=== PATIENT | female | born 1990 | race Caucasian/White ===

== ENCOUNTER 2016-06-23 08:20 | Emergency (ER) | payer OTHER ==
[2016-06-23] MEDS ORDERED: Eye Irrigation Solution 30 ML BOTTLE ONE (08:33)
[2016-06-23] MEDS ORDERED: Fluorescein Sodium TOPICAL* 1 MG TEST ONE (08:33)
[2016-06-23] MEDS ORDERED: Tetracaine 0.5% OPTH.SOL 4 ML* 1 DROP BTL ONE (08:33)
--- NOTE | 2016-06-23 08:46 | UC ---
Eye Complaint HPI - HPI Summary HPI Summary: left eye irritated and swollen since yest. No known injury. Does not wear contacts. - History of Current Complaint Chief Complaint: UCEye Stated Complaint: LEFT EYE COMPLAINT Time Seen by Provider: 06/23/16 08:43 Hx Obtained From: Patient Hx Last Menstrual Period: 06/11/16 ?: No Onset/Duration: Sudden Onset, Lasting Days, Still Present Timing: Constant Severity Initially: Moderate Severity Currently: Moderate Pain Intensity: 4 Pain Scale Used: 0-10 Numeric Location of Injury: Conjunctiva Character: Sharp Aggravating Factor(s): Nothing Alleviating Factor(s): Nothing Associated Signs And Symptoms: Positive: Drainage (Purulent), Swelling. Negative: Fever - Risk Factors Penetrating Injury Risk Factor: Negative Acute Glaucoma Risk Factors: Negative - Allergies/Home Medications Allergies/Adverse Reactions: Allergies Allergy/AdvReac Type Severity Reaction Status Date / Time Amoxicillin Allergy Intermediate Rash Verified 06/23/16 08:28 Latex Allergy Intermediate Rash Verified 06/23/16 08:28 PMH/Surg Hx/FS Hx/Imm Hx Endocrine History Of: Denies: Diabetes, Thyroid Disease Cardiovascular History Of: Denies: Cardiac Disorders, Hypertension Respiratory History Of: Reports: Asthma - Surgical History Surgical History: None - Family History Known Family History: Positive: Diabetes Negative: Cardiac Disease, Respiratory Disease, Other - JOINT LAXITY - Social History Lives: With Family Alcohol Use: Rare Substance Use Type: None Smoking Status (MU): Never Smoked Tobacco - Immunization History Most Recent Influenza Vaccination: 5 2 Most Recent Tetanus Shot: 212LBS Review of Systems Constitutional: Negative Skin: Negative Eyes: Drainage, Eye Redness ENT: Negative Respiratory: Negative Cardiovascular: Negative Gastrointestinal: Negative Genitourinary: Negative Motor: Negative Neurovascular: Negative Musculoskeletal: Negative Neurological: Negative Psychological: Negative All Other Systems Reviewed And Are Negative: Yes Physical Exam Triage Information Reviewed: Yes Appearance: Well-Appearing, Well-Nourished, Pain Distress Vital Signs: Initial Vital Signs Temp 98.4 F 06/23/16 08:25 Pulse 94 06/23/16 08:25 Resp 16 06/23/16 08:25 BP 92/76 06/23/16 08:25 Pulse Ox 100 06/23/16 08:25 Vital Signs Reviewed: Yes Eyes: Positive: Conjunctiva Inflamed - left, Discharge ENT: Positive: Normal ENT inspection Neck: Positive: Supple Respiratory: Positive: No respiratory distress Cardiovascular: Positive: RRR, Pulses Normal, Brisk Capillary Refill Musculoskeletal: Positive: Strength Intact, ROM Intact Neurological: Positive: Alert, Muscle Tone Normal Psychological Exam: Normal Skin: Positive: Other - swelling Eye Complaint Course/Dx - Course Course Of Treatment: Procedure: tetracaine 2 gtts, fluor strip, UV blue light, + corneal abrasion at 8:00, no ulceration, no FB. +yellow exudate, upper and lower lid swelling - Differential Dx/Diagnosis Differential Diagnosis/HQI/PQRI: Conjunctivitis, Corneal Abrasion, Periorbital Cellulitis Provider Diagnoses: corneal abrasion with secondary infection Discharge - Discharge Plan Condition: Stable Disposition: HOME Prescriptions: Tobramycin 0.3% OPHTH.TOMMY* 2 drop RIGHT EYE Q4H #1 btl Patient Education Materials: Corneal Abrasion (ED) Referrals: Analia Beasley MD [Primary Care Provider] -
[2016-06-23 09:09] VITALS: BP 97/75
== END 2016-06-23 09:14 | disposition home or self-care (01) ==
LOC: UCCORT 08:20
DX: S05.02XA Injury of conjunctiva and corneal abrasion without foreign body, left eye, initial encounter (principal); H44.002 Unspecified purulent endophthalmitis, left eye; X58.XXXA Exposure to other specified factors, initial encounter; Y92.9 Unspecified place or not applicable; Z88.1 Allergy status to other antibiotic agents
CPT/HCPCS: 99212; A9270-GY; G0463

== ENCOUNTER 2017-04-17 14:33 | Emergency (ER) | payer OTHER ==
[2017-04-17 15:49] VITALS: BP 119/74
--- NOTE | 2017-04-19 19:33 | UC ---
Throat Pain/Nasal Donald HPI - HPI Summary HPI Summary: 27 year old female presents with sore throat and fever. - History of Current Complaint Chief Complaint: UCGeneralIllness Stated Complaint: ST, FEVER 103 Time Seen by Provider: 04/17/17 15:53 Hx Obtained From: Patient Hx Last Menstrual Period: 03/25/17 Onset/Duration: Sudden Onset Severity: Moderate Pain Intensity: 5 Pain Scale Used: 0-10 Numeric Cough: None Associated Signs & Symptoms: Positive: Dysphagia - Allergies/Home Medications Allergies/Adverse Reactions: Allergies Allergy/AdvReac Type Severity Reaction Status Date / Time Amoxicillin Allergy Intermediate Rash Verified 04/17/17 15:49 Latex Allergy Intermediate Rash Verified 04/17/17 15:49 PMH/Surg Hx/FS Hx/Imm Hx Previously Healthy: Yes - Surgical History Surgical History: None - Family History Known Family History: Positive: None, Diabetes Negative: Cardiac Disease, Respiratory Disease, Other - JOINT LAXITY - Social History Alcohol Use: Rare Substance Use Type: None Smoking Status (MU): Never Smoked Tobacco - Immunization History Most Recent Influenza Vaccination: 5 2 Most Recent Tetanus Shot: 212LBS Review of Systems Constitutional: Negative Skin: Negative Eyes: Negative ENT: Sore Throat, Nasal Discharge, Sinus Congestion, Sinus Pain/Tenderness Respiratory: Negative Cardiovascular: Negative Gastrointestinal: Negative Genitourinary: Negative Motor: Negative Neurovascular: Negative Musculoskeletal: Negative Neurological: Negative Psychological: Negative All Other Systems Reviewed And Are Negative: Yes Physical Exam Triage Information Reviewed: Yes Vital Signs: Initial Vital Signs Temp 38.1 C 04/17/17 15:45 Pulse 132 04/17/17 15:45 Resp 17 04/17/17 15:45 BP 119/74 04/17/17 15:45 Pulse Ox 100 04/17/17 15:45 Vital Signs Reviewed: Yes Eye Exam: Normal ENT: Positive: Nasal congestion, Nasal drainage, Sinus tenderness Dental Exam: Normal Neck exam: Normal Neck: Positive: 1 Respiratory Exam: Normal Cardiovascular Exam: Normal Abdominal Exam: Normal Musculoskeletal Exam: Normal Neurological Exam: Normal Psychological Exam: Normal Skin Exam: Normal Throat Pain/Nasal Course/Dx - Differential Dx/Diagnosis Provider Diagnoses: pharyngitis. post nasal drip Discharge - Discharge Plan Condition: Stable Disposition: HOME Prescriptions: Azithromyxin JUAN CARLOS (NF) [Z-Juan Carlos (Zithromax) 250 mg tabs #6] 2 tab PO .TODAY, THEN 1 DAILY #6 tab LoraTADine TAB(NF) [Claritin 10 MG TAB(NF)] 10 mg PO DAILY #30 tab Magic M W2 Sumeet/Maal/Nyst/Lido* 5 ml SWISH SPIT QID PRN #120 ml PRN Reason: Pain Methylprednisolone [Medrol Dosepak 4 MG*] 4 mg PO .SEE JUAN CARLOS INSTRUCTION #21 tab Patient Education Materials: Strep Throat (ED) Forms: *Work Release Referrals: Awa Villeda [Primary Care Provider] -
== END 2017-04-17 16:14 | disposition home or self-care (01) ==
LOC: UCCORT 14:33
DX: J02.9 Acute pharyngitis, unspecified (principal); R09.82 Postnasal drip; R50.9 Fever, unspecified; Z88.1 Allergy status to other antibiotic agents; Z91.040 Latex allergy status
CPT/HCPCS: 87651; 99212; G0463

== ENCOUNTER 2018-08-17 21:59 | Emergency (ER) | payer OTHER ==
[2018-08-17] MEDS ORDERED: Cephalexin CAP* 500 MG PO ONE ×2 (22:17→22:32)
[2018-08-17 22:23] VITALS: BP 145/68
--- NOTE | 2018-08-17 22:35 | ED ---
Skin Complaint - HPI Summary HPI Summary: The pt is a 28 y/o F presenting to the ED with a chief complaint of an insect bite. The pt reports getting bit by an insect recently on her R forearm that has become pruritic within the last half hour with associated red streaking. She denies fever. - History of Current Complaint Chief Complaint: EDRashSkinAbscess Time Seen by Provider: 08/17/18 22:27 Stated Complaint: "RT ARM RASH" Hx Obtained From: Patient Hx Last Menstrual Period: 03/25/17 Onset/Duration: Started Hours Ago, Still Present Skin Exposure Onset/Duration: Hours Ago Timing: Constant, Lasting Hours Onset Severity: Mild Current Severity: None Pain Intensity: 0 Pain Scale Used: 0-10 Numeric Skin Location: Arm - Right Character: Pruritus, Redness Aggravating Symptom(s): Touch Alleviating Symptom(s): Nothing Associated Signs & Symptoms: Rash, Red Streaks Related History: Insect Bite/Sting - Allergy/Home Medications Allergies/Adverse Reactions: Allergies Allergy/AdvReac Type Severity Reaction Status Date / Time amoxicillin Allergy Rash Verified 08/17/18 22:17 latex Allergy Rash Verified 08/17/18 22:17 PMH/Surg Hx/FS Hx/Imm Hx Previously Healthy: Yes Endocrine/Hematology History: Denies: Hx Diabetes, Hx Thyroid Disease Cardiovascular History: Denies: Hx Hypertension Respiratory History: Reports: Hx Asthma Infectious Disease History: No Infectious Disease History: Denies: Traveled Outside the [place] in Last 30 Days - Family History Known Family History: Positive: Diabetes Negative: Cardiac Disease, Respiratory Disease, Other - JOINT LAXITY - Social History Alcohol Use: None Hx Substance Use: No Substance Use Type: Reports: None Hx Tobacco Use: No Smoking Status (MU): Never Smoked Tobacco Review of Systems Negative: Fever Positive: Rash, Other - pruritis, red streaking All Other Systems Reviewed And Are Negative: Yes Physical Exam - Summary Physical Exam Summary: Appearance: Well-appearing, Well-nourished, lying in bed comfortable Skin: R forearm has irritated areas on the ulnar side of the wrist with an oval shaped area of erythema just proximal to that, measuring about 3x4cm. There is another area proximal to the previously described area that has lymphangitis streaking about [address] the arm. The areas are warm, and there is no fluctuance. Eyes: sclera anicteric, no conjunctival pallor ENT: mucous membranes moist Neck: deferred Respiratory: No signs of respiratory distress Cardiovascular: Appears well perfused, pulses are nml Abdomen: deferred Musculoskeletal: Moving all 4 extremities without obvious discomfort Neurological: Awake and alert, mentation is normal, speech is fluent and appropriate Psychiatric: affect is normal, does not appear anxious or depressed Triage Information Reviewed: Yes Vital Signs On Initial Exam: Initial Vitals Temp Pulse Resp BP Pulse Ox 98.1 F 107 16 145/68 97 08/17/18 22:15 08/17/18 22:15 08/17/18 22:15 08/17/18 22:15 08/17/18 22:15 Vital Signs Reviewed: Yes Diagnostics - Vital Signs Vital Signs Temp Pulse Resp BP Pulse Ox 08/17/18 22:15 98.1 F 107 16 145/68 97 - Laboratory Lab Statement: Any lab studies that have been ordered have been reviewed, and results considered in the medical decision making process. Course/Dx - Course Course Of Treatment: The pt is a 28 y/o F presenting to the ED with a chief complaint of an insect bite. The pt reports getting bit by an insect recently on her R forearm that has become pruritic within the last half hour with associated red streaking. She denies fever. There is red streaking with irritated areas on her R forearm. In the ED course, she was given a dose of Keflex. She will be discharged with a dx of cellulitis. - Diagnoses Provider Diagnoses: Cellulitis Discharge - Sign-Out/Discharge Documenting (check all that apply): Patient Departure Patient Received Moderate/Deep Sedation with Procedure: No - Discharge Plan Condition: Stable Disposition: HOME Prescriptions: Cephalexin CAP* [Keflex CAP*] 500 mg PO QID #28 cap Patient Education Materials: Cellulitis (ED) Referrals: Awa Villeda [Primary Care Provider] - - Billing Disposition and Condition Condition: STABLE Disposition: Home - Attestation Statements Document Initiated by Scribe: Yes Documenting Scribe: Leny Portillo Provider For Whom Josh is Documenting (Include Credential): Jesus Ambrocio MD. Scribe Attestation: Leny Regalado, betoed for Jesus Ambrocio MD. on 08/18/18 at 0549. Scribe Documentation Reviewed: Yes Provider Attestation: The documentation as recorded by the scribe, Leny Portillo accurately reflects the service I personally performed and the decisions made by me, Jesus Ambrocio MD. Status of Josh Document: Viewed
== END 2018-08-17 22:40 | disposition home or self-care (01) ==
LOC: ED 21:59
DX: S50.861A Insect bite (nonvenomous) of right forearm, initial encounter (principal); W57.XXXA Bitten or stung by nonvenomous insect and other nonvenomous arthropods, initial encounter; Y92.9 Unspecified place or not applicable; L03.113 Cellulitis of right upper limb; Z91.040 Latex allergy status
CPT/HCPCS: 99282; A9270-GY

== ENCOUNTER 2018-09-14 05:58 | Inpatient (IN) | payer OTHER ==
[2018-09-14] MEDS ORDERED: Lactated Ringers 1000 ML Bag* 1,000 ML IV ONE (06:19)
[2018-09-14] MEDS ORDERED: Buffered Lidocaine 1% SYRIN* 1 ML/SYRINGE INTRADERM ONE (06:19)
[2018-09-14] MEDS ORDERED: ceFAZolin 2 GM PREMIX in ORs 2 GM/50 ML BAG IVPB ONE (06:19)
--- NOTE | 2018-09-14 06:30 | HP ---
General Information - Reason for Visit 28yo, , IUP@39+5 in active labor - General Information Maternal Age: 28 Grav: 4 Para: 3 SAB: 0 IEA: 0 Estimated Due Date: 09/16/18 Determined By: LMP Gestational Age in Weeks/Days: 39+5 Maternal Blood Type and Rh: A Positive - Results this Serology/RPR Result: Non-Reactive Rubella Result: Immune HBsAg Result: Negative HIV Result: Negative GBS Culture Result: Positive Past Medical History Delivery History: Hx Uncomplicated Vaginal Delivery Pertinent Past Medical History: See Records - Asthma, obesity Pertinent Past Surgical History: None Pertinent Family History: See Records Family History Comment: Father: d/t natural causes (age 88) Mother: substance abuse, bipolar, ADHD Brother: d/t drug overdose - Antepartal Records Antepartal Records: Reviewed, Complicated by: - G2 bleeding PP Review of Systems Constitutional: Uncomfortable CV Complaint: No Respiratory: Shortness of Breath: No Gastrointestinal: No Nausea/Vomiting Genitourinary: Leaking Fluid, No Dysuria, Spotting - bloody show Musculoskeletal: Contractions Neurological: No Headache, No Visual Changes Movement: Normal Exam Allergies/Adverse Reactions: Allergies amoxicillin Allergy (Verified 08/30/18 03:48) Rash latex Allergy (Verified 08/30/18 03:48) Rash Temp 97.9, BP 123/83, HR 91 - Measurements Pre- Weight: 216 lb - Exam Breast: Breast Exam Deferred CVA: No CVA Tenderness Extremities: No Edema Heart: Normal Rhythm/Heart Sounds HEENT: No Significant Findings Lungs: Clear Bilaterally Rectal: Rectal Exam Deferred - Abdominal Exam Abdomen Exam: Non-Tender, Fundal Height Consistent with Dates - Ultrasound/Biophysical Profile Ultrasound Status: Not Done Targeted Exam Findings Estimated Weight: 7.5lbs Cervical Exam: 4cm Effacement: 90% Station: -1 Presenting Part: Vertex Membrane Status: SROM Amniotic Fluid Evaluation: Clear EFM Findings - External Monitor Findings Baseline Heart Rate: 130 External Monitor Findings: Accelerations Present, No Pattern of Variable or Late Decelerations, Variability Moderate, Baseline Stable External Monitor Findings Comment: No evidence of metabolic acidemia Contractions: Regular, Strong, 45-90 Seconds - q3 mins Assessment/Plan - Assessment 28yo, , IUP@39+5 SROM, active labor Per pt, had bleeding PP after delivery of second child Hx of PPD Bacteriuria on 05/31/18, PCN allergy, okay to get kefzol (confirmed with pt) Regular contractions No evidence of metabolic acidemia Anticipate progression to - Obstetrical Risk Factors Obstetrical Risk Factors: GBS Positive, Obesity - Plan Plan: Admit - Anticipate Vaginal Delivery Plan Comment: Admit for active labor Abx for GBS prophylaxis Intermittent monitoring IV pit PP, given hx of PP bleeding anticipate - Date/Time of Admission Date of Admission: 09/14/18 Time of Admission: 06:30
[2018-09-14 06:58] LABS: ABS Eosinophils 0.1 10^3/ul (0-0.6); ABS Lymphocytes 3.3 10^3/ul (1.0-4.8); ABS Monocytes 0.9 10^3/ul (0-0.8); ABS Neutrophils 7.1 10^3/ul (1.5-7.7); Eosinophil % 0.4 %; Hematocrit 34 % (35-47); Hemoglobin 11.1 g/dL (12.0-16.0); Lymphocyte % 28.9 %; Mean Corpuscular HGB Conc 32 g/dL (31-36); Mean Corpuscular Hemoglobin 26 pg (27-31); Mean Corpuscular Volume 81 fL (80-97); Mean Platelet Volume 9.4 fL (7.4-10.4); Platelet Count 204 10^3/uL (150-450); Red Blood Count 4.23 10^6 /uL (3.70-4.87); Red Cell Distribution Width 16 % (10.5-15); White Blood Count 11.5 10^3/uL (3.5-10.8)
[2018-09-14] MEDS ORDERED: Lactated Ringers 1000 ML Bag* 1,000 ML IV SCH ×2 (07:00→11:00)
--- NOTE | 2018-09-14 07:20 | PN ---
Progress Note - Progress Note Date of Service: 09/14/18 Note: S: pt tearful. uncomfortable with contractions. O: FHR: 130, by intermittent monitoring Ctx q3 minutes VE: 6/100/-1, bloody show first dose of abx for GBS prophylaxis infused A: IUP@39+5 in active labor regular contractions Making appropriate cervical change, pt intolerant of VE P: Labor support Pt may consider nitrous oxide for pain relief Anticipate progression to
[2018-09-14] MEDS ORDERED: Oxytocin in LR* 20 UNITS/1,000 ML BAG IVPB ONE (08:20)
--- NOTE | 2018-09-14 09:29 | PN ---
Progress Note - Progress Note Date of Service: 09/14/18 Note: S: Using nitrous oxide with modest relief. Coping better with deeper breaths. Reports more pressure with UCs as well as low back pain O: B/P: 123/70, P: 108, R: 20, T: 97.4 FHR: baseline 110, moderate variability, +accelerations, no decelerations UCs: q1.5-3min, moderate to firm VE: 8/100/-2, clear fluid A: IUP at 39 5/7 weeks Category I FHR, no evidence of metabolic acidemia Active labor GBS positive, has received one dose of ABX P: Encouraged position changes, upright positioning, slower breathing Reassess PRN Anticipate SVB
[2018-09-14] MEDS ORDERED: Oxytocin in LR* 20 UNITS/1,000 ML BAG IVPB SCH (10:35)
[2018-09-14] MEDS ORDERED: Witch Hazel PAD* JAR TOPICAL PRN (10:58)
[2018-09-14] MEDS ORDERED: Glycerin ADULT SUPP PR PRN (10:58)
[2018-09-14] MEDS ORDERED: Acetaminophen TAB* 325 MG PO PRN (10:58)
[2018-09-14] MEDS ORDERED: Dibucaine 1% 28.35 GM TUBE PR PRN (10:58)
--- NOTE | 2018-09-14 11:05 | PROCNOTE ---
[facility] OB: Delivery Note - Delivery A Date of : 09/14/18 Time of : 10:26 [place] Sex: Male Score 1 Minute: 9 Score 5 Minutes: 9 Gestational Age in Weeks and Days at Delivery: 39 Weeks and 5 Days Delivery Method: Spontaneous Vaginal Labor: Spontaneous Did Patient attempt ?: N/A, No Previous Amniotic Fluid: Clear Estimated Blood Loss: 350 Anesthesia/Analgesia: Nitrous-Labor Delivered By: Sue Abdi - Nursery Level of Nursery: Regular/Bedside - Perineum Perineal Injury: Perineal Laceration, 1st Degree Perineal Repair: By Delivering Practioner - Events Delivery Events of Note: Pitocin Only After Delivery, Partial Course of Antibiotics - for GBS prophylaxis - cefazolin - Additional Delivery Notes Additional Delivery Notes: Sydnee began spontaneously bearing down, cervical exam revealed anterior lip easily reduced over infant head. Pushing continued with good maternal effort to of infant head, OA to MELANY, compound posterior hand. Shoulders and body followed easily with next push, infant delivered to maternal abdomen. Spontaneous cry, vigorous, HR >110. Apgars 9 and 9. Cord clamped x 2 and cut by FOB after pulsations ceased. Intact seth placenta soon followed, brisk bleeding noted, IV pitocin initiated at 250 cc/hr. Fundus firm. Perineum inspected, 1st degree perineal laceration noted and repaired in the usual fashion. Bilateral superficial labial abrasions also noted, not repaired. At time of note and mother stable, initiated. weight pending to allow for maternal- bonding. [id number].
[2018-09-14] MEDS ORDERED: Simethicone TAB* 80 MG TAB.CHEW PO SCH (12:30)
[2018-09-14] MEDS ORDERED: ceFAZolin VIAL(*) 1 GM in NS 0.9% 50 ML* 50 ML IVPB SCH (14:00)
[2018-09-14] MEDS: Docusate CAP* 100 MG PO SCH ×2 (14:29→22:00)
[2018-09-14] MEDS: Ibuprofen TAB* 600 MG PO PRN (18:33)
[2018-09-15] MEDS: Ibuprofen TAB* 600 MG PO PRN ×2 (00:29→06:17)
[2018-09-15 06:27] LABS: ABS Eosinophils 0.1 10^3/ul (0-0.6); ABS Lymphocytes 3.5 10^3/ul (1.0-4.8); ABS Monocytes 0.9 10^3/ul (0-0.8); Eosinophil % 0.4 %; Hematocrit 31 % (35-47); Lymphocyte % 25.9 %; Mean Corpuscular HGB Conc 32 g/dL (31-36); Mean Corpuscular Hemoglobin 26 pg (27-31); Mean Corpuscular Volume 82 fL (80-97); Mean Platelet Volume 8.9 fL (7.4-10.4); Nucleated Red Blood Cells % 0.1; Platelet Count 203 10^3/uL (150-450); Red Blood Count 3.81 10^6 /uL (3.70-4.87); Red Cell Distribution Width 16 % (10.5-15); White Blood Count 13.5 10^3/uL (3.5-10.8)
[2018-09-15] MEDS ORDERED: Ferrous Gluconate TAB* 324 MG TAB PO SCH (09:00)
[2018-09-15] MEDS: Docusate CAP* 100 MG PO SCH ×2 (12:48→16:14)
[2018-09-15 19:39] VITALS: BP 120/79
== END 2018-09-15 21:14 | disposition home or self-care (01) | DRG 560 ==
LOC: MCHOBOUT 05:58 → MCHOB 06:22
PROVIDERS: ADMIT Advanced Practice Midwife; ATTEND Midwife
PROC: 10E0XZZ Delivery of Products of Conception, External Approach (ICD-10-PCS; principal; 2018-09-14)
PROC: 0HQ9XZZ Repair Perineum Skin, External Approach (ICD-10-PCS; 2018-09-14)
DX: O99.824 Streptococcus B carrier state complicating childbirth (principal); Z37.0 Single live birth; O99.214 Obesity complicating childbirth; O70.0 First degree perineal laceration during delivery; O32.6XX0 Maternal care for compound presentation, not applicable or unspecified; Z3A.39 39 weeks gestation of pregnancy
CPT/HCPCS: 36415; 85025; 86850; 86900; 86901; A9270-GY; J0690

== ENCOUNTER → 2019-03-06 09:39 | Day surgery (SDC) | payer OTHER ==
[~2019-03-06 09:39] MED LIST: Buffered Lidocaine 1% SYRIN* 1 ML/SYRINGE INTRADERM ONE; Bupivacaine 0.5%* 50 ML MDV VIAL ONE; Cisatracurium* 2 MG/ML MDV 5 ML ONE; Dexamethasone IV* 4 MG/ML 1 ML (4 MG) ONE; Famotidine IV* 10 MG/ML 2 ML (20 mg) IV ONE; Famotidine IV* 10 MG/ML 2 ML (20 mg) ONE; Glycopyrrolate IV* 0.2 MG/ML 1 ML VIAL ONE; Ketorolac INJ* 30 MG/ML 1 ML VIAL ONE; Lactated Ringers 1000 ML Bag* 1,000 ML IV SCH; Levalbuterol 0.63MG/3ML NEB* UNIT OF USE INH ONE; Levalbuterol 1.25MG/0.5ML NEB ONE; Lidocaine 2% PF * 5 ML VIAL ONE; Midazolam* 1 MG/ML 5 ML VIAL (5 MG) ONE; Naloxone* 0.4 MG/ML 1 ML VIAL IV PRN; Neostigmine Methylsulfate* 1 MG/ML 10 ML VIAL (1 mg/ml) ONE; Ondansetron INJ* 2 MG/ML VIAL IV PRN; Ondansetron INJ* 2 MG/ML VIAL ONE; Propofol* 10 MG/ML 20 ML BTL ONE; fentaNYL* 50 MCG/ML 2 ML VIAL (100 MCG VIAL) IV PRN; fentaNYL* 50 MCG/ML 2 ML VIAL (100 MCG VIAL) ONE
[2019-03-06 12:48] VITALS: BP 122/92
--- NOTE | 2019-03-06 14:00 | OP ---
DATE OF OPERATION: 03/06/19 - [facility] DATE OF : 88 SURGEON: Domenico Pack MD ANESTHESIA: General endotracheal tube. PRE-OP DIAGNOSIS: Desires permanent sterilization. POST-OP DIAGNOSIS: Desires permanent sterilization. OPERATIVE PROCEDURE: Laparoscopic tubal ligation. ESTIMATED BLOOD LOSS: Minimal. SPECIMENS: None. FINDINGS: Include normal uterus, fallopian tubes, and ovaries. DESCRIPTION OF PROCEDURE: The patient identified and procedure identified as a laparoscopic tubal interruption. The patient was taken to the operating room, prepped and draped in the usual fashion in the dorsal lithotomy position under general anesthesia. The patient was catheterized and a sponge stick was placed in the vagina. A small infraumbilical incision was made and the Veress needle was inserted through this. The abdomen was insufflated to 15 mmHg. The Veress needle was removed and the trocar was inserted. Trocar was removed from the sheath and the laparoscope was inserted and the above findings were noted. A second incision was made 2 cm above the pubic symphysis in the midline. The right fallopian tube was grasped from its mid portion, followed out to its fimbriated ends and fulgurated x3 in the isthmus, then also fulgurated at the fimbria. The same procedure was carried on the left after following it out to fimbriated ends. Good hemostasis was verified. All instruments removed from the abdomen. The abdomen was deflated of CO2. All sponge and instrument counts were correct. The skin was closed with skin glue. Sponge and sponge stick removed from the vagina and the patient returned to recovery room in stable condition. [id number]/[facility] #: [id number] [facility]
== END | disposition home or self-care (01) ==
LOC: OR 09:39
PROVIDERS: ATTEND Obstetrics & Gynecology
DX: Z30.2 Encounter for sterilization (principal); J45.909 Unspecified asthma, uncomplicated; M19.90 Unspecified osteoarthritis, unspecified site; Z88.0 Allergy status to penicillin
CPT/HCPCS: A9270-GY; J1100; J1885; J2250; J2405; J2704; J2710; J3010; J3490

== ENCOUNTER 2019-06-08 08:35 | Emergency (ER) | payer OTHER ==
[2019-06-08 08:48] VITALS: BP 102/69
[2019-06-08] MEDS ORDERED: Ondansetron ODT TAB* 4 MG PO ONE (09:06)
--- NOTE | 2019-06-08 09:10 | UC ---
FLU HPI - HPI Summary HPI Summary: 29-year-old female comes in with influenza-like symptoms for 1 day. She has had fevers chills body aches. Also has a sore throat. Ibuprofen helps with the symptoms. She had nausea and vomiting. She is still nauseous. - History of Current Complaint Chief Complaint: UCGeneralIllness Stated Complaint: FLU SYMPTOMS Time Seen by Provider: 06/08/19 08:51 Hx Last Menstrual Period: 05/06/19 Pain Intensity: 1 - Allergy/Home Medications Allergies/Adverse Reactions: Allergies Allergy/AdvReac Type Severity Reaction Status Date / Time amoxicillin Allergy Intermediate Rash, hives Verified 06/08/19 08:39 latex Allergy Intermediate Rash Verified 06/08/19 08:39 Home Medications: Home Medications Phendimetrazine Tartrate 35 mg PO TID 06/08/19 [History Confirmed 06/08/19] PMH/Surg Hx/FS Hx/Imm Hx Previously Healthy: Yes - Surgical History Surgical History: Yes Surgery Procedure, Year, and Place: tubal ligation - Family History Known Family History: Positive: Diabetes Negative: Cardiac Disease, Respiratory Disease, Other - JOINT LAXITY - Social History Alcohol Use: Occasionally Substance Use Type: None Smoking Status (MU): Never Smoked Tobacco Have You Smoked in the Last Year: No Household Exposure Type: Cigarettes - Immunization History Most Recent Influenza Vaccination: 03/17 Most Recent Tetanus Shot: 212LBS Most Recent Pneumonia Vaccination: na Review of Systems All Other Systems Reviewed And Are Negative: Yes Constitutional: Positive: Fever, Chills, Other - SEE HPI Skin: Positive: Negative Eyes: Positive: Negative ENT: Positive: Sore Throat, Nasal Discharge Respiratory: Positive: Negative Cardiovascular: Positive: Negative Gastrointestinal: Positive: Vomiting, Nausea Motor: Positive: Negative Neurovascular: Positive: Negative Musculoskeletal: Positive: Myalgia Neurological: Positive: Negative Psychological: Positive: Negative Is Patient Immunocompromised?: No Physical Exam Triage Information Reviewed: Yes Appearance: No Pain Distress, Well-Nourished, Ill-Appearing - MILD Vital Signs: Initial Vital Signs Temp 97.8 F 06/08/19 08:41 Pulse 77 06/08/19 08:41 Resp 16 06/08/19 08:41 BP 102/69 06/08/19 08:41 Pulse Ox 99 06/08/19 08:41 Vital Signs Reviewed: Yes Eye Exam: Normal Eyes: Positive: Conjunctiva Clear ENT: Positive: Pharyngeal erythema, Nasal congestion, Nasal drainage, TMs normal Neck: Positive: Supple Respiratory: Positive: No respiratory distress, Rhonchi Cardiovascular: Positive: RRR Musculoskeletal: Positive: Strength Intact, ROM Intact Neurological: Positive: Alert, Muscle Tone Normal Psychological: Positive: Age Appropriate Behavior Skin Exam: Normal Flu Course/Dx - Course Course Of Treatment: Strep and flu were negative. Will treat symptomatically. Follow-up primary care doctor get reevaluated sooner if worse or any questions or concerns. - Differential Dx/Diagnosis Provider Diagnosis: Nausea & vomiting, Upper respiratory infection Discharge ED - Sign-Out/Discharge Documenting (check all that apply): Patient Departure All imaging exams completed and their final reports reviewed: No Studies - Discharge Plan Condition: Stable Disposition: HOME Prescriptions: Ondansetron ODT TAB* [Zofran 4 MG Odt TAB*] 4 mg PO Q6H PRN #10 tab.odt PRN Reason: Nausea/Vomiting Patient Education Materials: Acute Nausea and Vomiting (ED), Upper Respiratory Infection (ED) Forms: *Work Release Referrals: [facility] [place] [facility]IC[facility] REFERRAL [Outside] Additional Instructions: FOLLOW UP WITH YOUR DOCTOR IF NOT COMPLETELY IMPROVED. GET REEVALUATED SOONER IF NOT IMPROVED OR WORSE OR ANY QUESTIONS OR CONCERNS. - Billing Disposition and Condition Condition: STABLE Disposition: Home
[2019-06-08 09:12] LABS: Influenza A Molecular Negative (Negative); Influenza B Molecular Negative (Negative)
== END 2019-06-08 09:35 | disposition home or self-care (01) ==
LOC: UCEAST 08:35
DX: J06.9 Acute upper respiratory infection, unspecified (principal); R11.2 Nausea with vomiting, unspecified; Z88.0 Allergy status to penicillin; Z91.040 Latex allergy status
CPT/HCPCS: 87651; 99212; A9270-GY; G0463

== ENCOUNTER 2019-07-01 10:19 | Emergency (ER) | payer OTHER ==
--- NOTE | 2019-07-01 11:17 | ED ---
Upper Extremity Pain - HPI Summary HPI Summary: Patient is a 29 y/o F presenting to the ED for a chief complaint of right neck, right shoulder, right upper back, and right UE pain. Patient states that she was walking on her porch around 06:30 on 06/30/19 when she slipped and fell on ice, landing on her right shoulder. During the day, the pain progressively worsened. Patient also notes decreased ROM in the right UE due to pain, right hand edema, and intermittent right hand numbness. Movement worsens with pain. No alleviating factors are reported. The pain is described as a shooting sensation. Patient is right-handed. PMHx is significant for chronic constipation and exercise-induced asthma. She is having her medications for constipation managed by her PCP. - History of Current Complaint Chief Complaint: EDShoulderClavicKathrine Stated Complaint: R SHOULDER INJ FROM FALL PER PT Time Seen by Provider: 07/01/19 11:12 Hx Obtained From: Patient Hx Last Menstrual Period: 05/06/19 Mechanism Of Injury: Fall From A Standing Position Onset/Duration: Traumatic - Fall, Still Present Timing: Constant Severity Initially: Moderate Severity Currently: Moderate Pain Location: Shoulder - Right Aggravating Factor(s): Movement Alleviating Factor(s): Nothing Associated Signs & Symptoms: Positive: Swelling - Right hand, Numbness/Tingling - Right hand numbness, intermittent, Back Pain - Right upper, Neck Pain - Right- sided Related History: Dominant Hand Right - Allergies/Home Medications Allergies/Adverse Reactions: Allergies Allergy/AdvReac Type Severity Reaction Status Date / Time amoxicillin Allergy Intermediate Rash, hives Verified 07/01/19 11:36 latex Allergy Intermediate Rash Verified 07/01/19 11:36 Home Medications: Home Medications Ibuprofen TAB* [Motrin TAB* 600 MG] 600 mg PO Q6H PRN tab 09/15/18 [Rx Confirmed 07/01/19] Ondansetron ODT TAB* [Zofran 4 MG Odt TAB*] 4 mg PO Q6H PRN #10 tab.odt [Rx Confirmed 07/01/19] Phendimetrazine Tartrate 35 mg PO BID 06/08/19 [History Confirmed 07/01/19] Ibuprofen TAB* [Motrin TAB* 800 MG] 800 mg PO TID PRN 10 Days #30 tab 07/01/19 [ Rx] PMH/Surg Hx/FS Hx/Imm Hx Previously Healthy: Yes Endocrine/Hematology History: Denies: Hx Diabetes, Hx Thyroid Disease Cardiovascular History: Denies: Hx Hypertension Respiratory History: Reports: Hx Asthma - Exercise induced GI History: Reports: Other GI Disorders - Chronic constipation History: Denies: Hx Kidney Infection Musculoskeletal History: Reports: Hx Arthritis - osteoarthritis right knee Sensory History: Reports: Hx Contacts or Glasses - for reading Denies: Hx Legally Blind, Hx Deafness, Hx Hearing Aid Opthamlomology History: Reports: Hx Contacts or Glasses - for reading Denies: Hx Legally Blind EENT History: Denies: Hx Deafness Psychiatric History: Denies: Hx Anxiety, Hx Depression, Other Psychiatric Issues/Disorders - Cancer History Hx Chemotherapy: No - Surgical History Surgical History: Yes Surgery Procedure, Year, and Place: tubal ligation Infectious Disease History: No Infectious Disease History: Denies: Traveled Outside the [place] in Last 30 Days - Family History Known Family History: Positive: Diabetes Negative: Cardiac Disease, Respiratory Disease, Other - JOINT LAXITY - Social History Occupation: Employed Full-time Lives: With Family Alcohol Use: Occasionally Hx Substance Use: No Substance Use Type: Reports: None Hx Tobacco Use: No Smoking Status (MU): Never Smoked Tobacco Have You Smoked in the Last Year: No Review of Systems Positive: Arthralgia - Right shoulder, Myalgia - Right upper back, right-sided neck, right UE, Decreased ROM - Right UE due to pain, Edema - Right hand Positive: Numbness - Right hand numbness, intermittent All Other Systems Reviewed And Are Negative: Yes Physical Exam - Summary Physical Exam Summary: Constitutional: Well-developed, Well-nourished, Alert. (-) Distressed Skin: Warm, Dry HENT: Normocephalic; Atraumatic Eyes: Conjunctiva normal Neck: Musculoskeletal ROM normal neck. (-) JVD, (-) Stridor, (-) Nuchal rigidity. No Cspine TTP Cardio: Rhythm regular, rate normal, Heart sounds normal; Intact distal pulses; Radial pulses are 2+ and symmetric. (-) Murmur Pulmonary/Chest wall: Effort normal. (-) Respiratory distress, (-) Wheezes, (-) Rales Abd: Soft, (-) tenderness, (-) Distension, (-) Guarding, (-) Rebound Musculoskeletal: (-) Edema. Tenderness of the posterior right shoulder and trapezius muscle, no tenderness to the anterior clavicle or humerus. Pain with shoulder extension and abduction, sensation intact to the right arm and hand. Neuro: Alert, Oriented x3 Psych: Mood and affect Normal Triage Information Reviewed: Yes Vital Signs On Initial Exam: Initial Vitals Temp Pulse Resp BP Pulse Ox 98.6 F 96 18 122/93 100 07/01/19 10:20 07/01/19 10:20 07/01/19 10:20 07/01/19 10:20 07/01/19 10:20 Vital Signs Reviewed: Yes Procedures - Sedation Patient Received Moderate/Deep Sedation with Procedure: No Diagnostics - Vital Signs Vital Signs Temp Pulse Resp BP Pulse Ox 07/01/19 10:20 98.6 F 96 18 122/93 100 - Laboratory Lab Statement: Any lab studies that have been ordered have been reviewed, and results considered in the medical decision making process. - Radiology Shoulder X-ray Radiology Interpretation Completed By: Radiologist Summary of Radiographic Findings: Shoulder X-ray IMPRESSION: NO ACUTE OSSEOUS INJURY. IF SYMPTOMS PERSIST, RECOMMEND REPEAT IMAGING. Reviewed by Dr. Corbett. Course/Dx - Course Course Of Treatment: 29 y/o F p/w R shoulder pain after fall. - PE w tenderness posterior R shoulder, trapezius. No Cspine TTP. No tear shoulder, clavicular, humeral tenderness. 2+ radial pulse. Sensation intact in arm. Full strength of the hand and wrist, pain with shoulder flexion extension abduction. Suspect ligamentous strain or muscle contusion. X-ray negative. Patient given Motrin, orthopedic follow-up as needed if she has persistent symptoms. - Diagnoses Provider Diagnoses: Fall, Shoulder pain Discharge ED - Sign-Out/Discharge Documenting (check all that apply): Patient Departure - Discharge - Discharge Plan Condition: Stable Disposition: HOME Prescriptions: Ibuprofen TAB* [Motrin TAB* 800 MG] 800 mg PO TID PRN 10 Days #30 tab PRN Reason: Pain - Moderate Patient Education Materials: Shoulder Sprain (ED) Forms: *Work Release Referrals: Cortez Castellon MD [Primary Care Provider] - Abundio Rowland MD [Medical Doctor] - Additional Instructions: You were seen in the emergency department for shoulder pain after fall. Your x- ray didn't show any fractures. Please follow up with orthopedics if you have persistent pain, numbness or tingling your arm, or are concerned. Please follow up with your primary care doctor in next 2-3 days and return to emergency department for worsening or concerning symptoms. It was a pleasure taking care of you today. - Billing Disposition and Condition Condition: STABLE Disposition: Home - Attestation Statements Document Initiated by Josh: Yes Documenting Scribe: Ksenia Goel Provider For Whom Josh is Documenting (Include Credential): Magnus Corbett MD Scribe Attestation: I, Ksenia Goel, scribed for Magnus Corbett MD on 07/01/19 at 1225. Scribe Documentation Reviewed: Yes Provider Attestation: The documentation as recorded by the Ksenia ferguson accurately reflects the service I personally performed and the decisions made by me, Magnus Corbett MD Status of Scribe Document: Viewed
[2019-07-01 12:29] VITALS: BP 121/91
[2019-07-01] MEDS ORDERED: Lidocaine PATCH 5%* 1 PATCH TRANSDERM SCH (12:30)
[2019-07-01] MEDS ORDERED: Lidocaine Patch REMOVE* 1 NOTE MISC SCH ×2 (21:00)
== END 2019-07-01 12:25 | disposition home or self-care (01) ==
LOC: ED 10:19
DX: M25.511 Pain in right shoulder (principal); M54.2 Cervicalgia; M54.6 Pain in thoracic spine; R20.2 Paresthesia of skin; W00.0XXA Fall on same level due to ice and snow, initial encounter; Y92.9 Unspecified place or not applicable; Z88.0 Allergy status to penicillin; Z91.040 Latex allergy status; K59.09 Other constipation
CPT/HCPCS: 99282; A9270-GY